=== PATIENT | male | born 1990 | race Caucasian/White ===

== ENCOUNTER 2020-12-06 17:37 | Emergency (ER) | payer OTHER, SELFPAY ==
--- NOTE | 2020-12-06 17:42 | ED.WOUNDLAC ---
HPI - Wound/Laceration General Chief Complaint: Wound/Laceration Stated Complaint: Cut above right Eye Time Seen by Provider: 12/06/20 17:42 Source: patient and RN notes reviewed History of Present Illness HPI narrative: Patient is a 29-year-old male who presents the urgent care with complaints of a laceration above the right eyebrow. Patient states the injury occurred at 4:45 PM prior to arrival. Patient states that he was drilling a hole through the door, the drill kicked back and the battery hit him above the right eyebrow. Patient states that he has controlled the bleeding but otherwise has not done anything prior to arrival. Denies of any loss of consciousness. No other acute complaints. No acute distress noted. Patient aware of the plan of care. Some parts of this dictation were generated by voice recognition software and may contain typographical and/or grammatical inaccuracies. Related Data Home Medications Medication Instructions Recorded Confirmed No Home Medications 12/06/20 12/06/20 Allergies Allergy/AdvReac Type Severity Reaction Status Date / Time amoxicillin Allergy Intermediate Unknown Verified 12/06/20 18:07 Review of Systems Review of Systems: Narrative: CONSTITUTIONAL: Denies fever, chills, or sweats. EYES: Denies visual changes, redness, or discharge. ENT: Denies rhinorrhea, congestion, sore throat, or otalgia. CARDIOVASCULAR: Denies chest pain, palpitations, or edema. RESPIRATORY: Denies cough or dyspnea. GASTROINTESTINAL: Denies abdominal pain, nausea, vomiting, or diarrhea. GENITOURINARY: Denies dysuria or hematuria. SKIN: Reports of laceration above the right eyebrow MUSCULOSKELETAL: Denies back pain, joint pain, or myalgia. NEUROLOGIC: Denies headache, numbness, or weakness. All other systems reviewed are negative, except as documented in HPI. PMFSH Social History Social History Smoking status: Never smoker Comments At the time of my signature, I reviewed and agree with the nursing past medical, surgical, social, and family history. There is no relevant family history pertinent to the patient complaint. Exam Narrative: Exam Narrative: GENERAL: This is a well-nourished, well-developed patient, in no apparent distress. HEAD: normocephalic, atraumatic. EYES: PERRL. Sclera clear/white. Vision is grossly intact. EARS: External ears normal NOSE: External nose normal with no obvious nasal discharge, nares without redness, no rhinorrhea. THROAT: Mucous membranes moist NECK: Neck supple CARDIOVASCULAR: Regular rate and rhythm SKIN: 2.5 cm linear laceration above the right eyebrow gaping 0.5 cm NEURO: awake, alert, and oriented to person, place and time. There were no obvious focal neurologic abnormalities. EXTREMITIES: No clubbing, cyanosis, or edema. Course Vital Signs Vital signs: Vital Signs Temperature 98.2 F 12/06/20 17:45 Pulse Rate 54 L 12/06/20 17:45 Respiratory Rate 16 12/06/20 17:45 Blood Pressure 129/68 12/06/20 17:45 Pulse Oximetry 98 12/06/20 17:45 Temperature 98.2 F 12/06/20 17:45 Pulse Rate 54 L 12/06/20 17:45 Respiratory Rate 16 12/06/20 17:45 Blood Pressure 129/68 12/06/20 17:45 Pulse Oximetry 98 12/06/20 17:45 Reviewed Procedures Laceration Laceration 1: Site: face Side (If applicable): right Description: linear Depth: simple, single layer Local Anesthetic: lidocaine 1% Amount of anesthesia used (mL): 1 Pre-repair: irrigated ([employer] normal saline) ====== Skin Level ====== Skin layer closed with: vicryl Size (cm): 5-0 Number of sutures: 4 ====== Subcutaneous Layer ====== ====== Muscle Layer ====== ====== Tendon Layer ====== Dressing: Irrigated the wound with [employer] normal saline. 1% lidocaine, 1ml used for anesthetic. 2.5 cm in length and approximately 0.5 cm gaping and with above the right eyebrow. 4 sutures placed with V
[2020-12-06 17:45] VITALS: BP 129/68; PULSE 54; RESP 16; TEMP 36.8; O2SAT 98
== END 2020-12-06 18:20 | disposition home or self-care (01) ==
PROVIDERS: Emergency Provider Nurse Practitioner Family
DX: S01.111A Laceration without foreign body of right eyelid and periocular area, initial encounter (principal); W29.8XXA Contact with other powered hand tools and household machinery, initial encounter
CPT/HCPCS: 12011; 99212; G0463